=== PATIENT | female | born 1980 | race Hispanic/Latino ===

== ENCOUNTER 2019-02-17 18:03 | Observation (INO) | payer BC ==
[~2019-02-17] VITALS: Ht 157.5 cm; Wt 88.5 kg
[2019-02-17 19:06] LABS: APPEARANCE,URINE Clear (CLEAR); BILIRUBIN,URINE Negative (NEGATIVE); COLOR,URINE Yellow (YELLOW); GLUCOSE, URINE (UA) Negative (NEGATIVE); KETONES,URINE Negative (NEGATIVE); LEUKOCYTE ESTERASE ,URINE Negative (NEGATIVE); NITRATE,URINE Negative (NEGATIVE); OCCULT BLOOD,URINE Negative (NEGATIVE); PH,URINE 6.5 (5.0-8.0); PROTEIN,URINE Negative (NEGATIVE)
== END 2019-02-17 20:56 | disposition home or self-care (01) ==
LOC: EDH 18:03 → LDH 18:04
PROVIDERS: ADMIT Internal Medicine; ATTEND Internal Medicine
DX: O60.03 Preterm labor without delivery, third trimester (principal); Z3A.35 35 weeks gestation of pregnancy
CPT/HCPCS: 59025; 76805; 81003; 82120; 99283; G0378 ×3